=== PATIENT | female | born 1980 | race Caucasian/White ===

== ENCOUNTER 2017-04-17 17:57 | Outpatient (CLI) | payer OTHER ==
[~2017-04-17] VITALS: Ht 172.7 cm; Wt 134.5 kg
[2017-04-17 18:22] VITALS: BP 137/78
[2017-04-17] MEDS ORDERED: LABE100T3 PO (18:34)
[2017-04-17] MEDS ORDERED: PREN1TAB60 PO (18:34)
[2017-04-17 18:35] LABS: HEMATOCRIT 38.8 % (34.6-47.8); HEMOGLOBIN 13.1 g/dL (11.7-16.4); WHITE BLOOD COUNT 11.5 x10^3/uL (3.4-10)
[2017-04-17 18:46] LABS: ASPARTATE AMINO TRANSFERASE 16 U/L (15-37); BLOOD UREA NITROGEN 9 mg/dL (7-18)
== END 2017-04-17 19:39 | disposition home or self-care (01) ==
LOC: LDOP 17:57
PROVIDERS: ATTEND Obstetrics & Gynecology
DX: O13.3 Gestational [pregnancy-induced] hypertension without significant proteinuria, third trimester (principal); Z3A.38 38 weeks gestation of pregnancy
CPT/HCPCS: 36415; 59025; 80053; 81003; 82248; 84550; 85025; 99201; G0463

== ENCOUNTER 2018-10-02 20:59 | Emergency (ER) | payer OTHER ==
[~2018-10-02] VITALS: Ht 170.2 cm; Wt 127.4 kg
[~2018-10-02 20:59] MED LIST: IBUP-1223 PO; LABE100T6 PO; OXYC-302 PO; PREN1TAB60 PO
[2018-10-02 21:10] VITALS: BP 117/71
[2018-10-02] MEDS ORDERED: DEXAMETHASONE 4 MG/ML, 1ML PO ONE (21:30)
[2018-10-02] MEDS ORDERED: AMOXICILLIN/CLAV 875-125MG TABLET PO STA (21:44)
[2018-10-02] MEDS ORDERED: DEXAMETHASONE 4 MG TABLET PO STA (21:45)
[2018-10-02] MEDS ORDERED: DEXAMETHASONE 4 MG TABLET ONE (22:03)
[2018-10-02] MEDS ORDERED: AMOXICILLIN/CLAV 875-125MG TABLET ONE (22:03)
== END 2018-10-02 22:11 | disposition home or self-care (01) ==
LOC: ED 21:37
DX: J02.0 Streptococcal pharyngitis (principal)
CPT/HCPCS: 99283